=== PATIENT | male | born 1960 | race Caucasian/White ===

== ENCOUNTER 2017-02-15 19:49 | Emergency (ER) | payer MEDICAID ==
[~2017-02-15] VITALS: Ht 182.9 cm; Wt 87.5 kg
[2017-02-15] MEDS ORDERED: ACETAMINOPHEN500 M3 ORAL (20:18)
[2017-02-15 20:28] VITALS: BP 136/74
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
== END 2017-02-15 20:28 | disposition home or self-care (01) ==
LOC: EDBD 19:49 → EMR 20:24
DX: S80.11XA Contusion of right lower leg, initial encounter (principal); Y04.0XXA Assault by unarmed brawl or fight, initial encounter; Y92.89 Other specified places as the place of occurrence of the external cause
CPT/HCPCS: 99283

== ENCOUNTER 2017-03-31 19:27 | Emergency (ER) | payer MEDICAID ==
[~2017-03-31] VITALS: Ht 182.9 cm; Wt 90.7 kg
[~2017-03-31 19:27] MED LIST: ACETAMINOPHEN500 M3 ORAL
[2017-03-31 19:30] VITALS: BP 103/61
[2017-03-31] MEDS ORDERED: Acetaminophen 500mg (ES) tab PO ONE (19:30)
[2017-03-31] MEDS ORDERED: Ketorolac 30mg Inj IM ONE (19:30)
[2017-03-31] MEDS ORDERED: Tetanus/Diptheria/Pertussis Vaccine 0.5ml Syr IM ONE (19:30)
[2017-03-31] MEDS ORDERED: Bacitracin Oint UD TOPIC ONE (19:45)
[2017-03-31 20:36] LABS: BASOPHILS % (AUTO) 1.9 % (0.0-2.0); EOSINOPHILS % (AUTO) 0.9 % (0.0-3.0); LYMPHOCYTES % (AUTO) 43.8 % (20.0-45.0); MEAN CORPUSCULAR HEMOGLOBIN 34.8 PG (27.0-31.0); MEAN CORPUSCULAR HGB CONC 33.6 G/DL (32.0-36.0); MEAN CORPUSCULAR VOLUME 103 FL (80-99); MEAN PLATELET VOLUME 7.1 FL (6.5-10.1); MONOCYTES % (AUTO) 10.5 % (1.0-10.0); NEUTROPHILS % (AUTO) 42.9 % (45.0-75.0); PLATELET COUNT 181 K/UL (150-450); RED CELL DISTRIBUTION WIDTH 12.4 % (11.6-14.8); WHITE BLOOD COUNT 5.5 K/UL (4.8-10.8)
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
[2017-03-31] MEDS ORDERED: Ketorolac 30mg Inj IV ONE (20:45)
[2017-03-31 21:01] LABS: ALANINE AMINOTRANSFERASE 164 U/L (3-41); ALBUMIN/GLOBULIN RATIO 1.6 (1.0-2.7); ALCOHOL 374 mg/dL; ANION GAP 19 (5-15); ASPARTATE AMINO TRANSFERASE 261 U/L (5-40); CALCIUM 8.8 mg/dL (8.6-10.2); CARBON DIOXIDE 26 mEQ/L (20-30); CHLORIDE 94 mEQ/L (98-107); CREATININE 1.1 mg/dL (0.7-1.2); GLOMERULAR FILTRATION RATE > 60 mL/min (>60); HEMOLYSIS 5; POTASSIUM 3.9 mEQ/L (3.4-4.9); SODIUM 139 mEQ/L (135-145); TOTAL PROTEIN 7.2 g/dL (6.6-8.7)
[2017-03-31 21:30] VITALS: BP 111/68
[2017-03-31] MEDS ORDERED: ACETAMINOPHEN500 M3 ORAL (23:21)
[2017-03-31] MEDS ORDERED: BACITRACIN15 GM TOPIC (23:21)
[2017-03-31 23:30] VITALS: BP 105/62
[2017-04-01 01:30] VITALS: BP 125/69
[2017-04-01 03:30] VITALS: BP 135/69
[2017-04-01 05:30] VITALS: BP 132/64
[2017-04-01 05:45] VITALS: BP 135/69
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
== END 2017-04-01 05:45 | disposition home or self-care (01) ==
LOC: EDBD 19:27 → EMR 19:35
DX: M79.604 Pain in right leg (principal); G89.29 Other chronic pain; S80.811A Abrasion, right lower leg, initial encounter; X58.XXXA Exposure to other specified factors, initial encounter; Y93.9 Activity, unspecified; Y92.9 Unspecified place or not applicable; F10.929 Alcohol use, unspecified with intoxication, unspecified; Z23 Encounter for immunization
CPT/HCPCS: 36415; 73590; 80053; 80329; 85025; 90471; 90715; 96372; 96374; 99284; J1885

== ENCOUNTER 2017-04-01 20:23 | Emergency (ER) | payer MEDICAID ==
[~2017-04-01] VITALS: Ht 182.9 cm; Wt 85.7 kg
[~2017-04-01 20:23] MED LIST changes: +BACITRACIN15 GM TOPIC
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
[2017-04-01 21:26] VITALS: BP 122/74
[2017-04-01 23:10] VITALS: BP 132/84
[2017-04-02 03:12] VITALS: BP 124/72
[2017-04-02 04:40] VITALS: BP 126/72
[2017-04-02 04:46] VITALS: BP 126/72
== END 2017-04-02 05:35 | disposition home or self-care (01) ==
LOC: EDBD 20:23 → EMR 20:56
DX: G89.21 Chronic pain due to trauma (principal); F10.10 Alcohol abuse, uncomplicated
CPT/HCPCS: 99282